=== PATIENT | male | born 1950 | race Caucasian/White ===

== ENCOUNTER 2017-03-01 13:48 | Inpatient (IN) | payer OTHER ==
--- NOTE | ~2017-03-01 | CR63 ---
[facility] A Service of [facility] & [facility] RADIOLOGY TEXT RESULTS PATIENT: ELIANA MCGOWAN LOCATION: [facility] 319- : 48 UNIT #: [id number] AGE: [address]: Eliseo Tirado MD SEX: M ORDER DR: [id number] [facility] [address]. [place], [place] [address] [id number] I MR#: [id number] Acc #: [id number] NAME: ELIANA MCGOWAN. : 1950 SEX: M STUDY DATE/TIME: 03/06/2017 9:00 UNIT: [address] ROOM: [facility] STUDY DESCRIPTION: CR Chest 2 View Attending Physician: Eliseo Tirado M.D. Ordering Physician: Seth Hernandez M.D. Primary Care Physician: Elizabeth Brito M.D. MEDICAL IMAGING REPORT This report is preliminary unless electronic signature is present EXAM PA and lateral chest in 4 views 03/06/2017 COMPARISON STUDIES 03/02/2017 HISTORY Chest pain for 2 days with shortness of air. FINDINGS There is improved lung aeration since the prior study with decreased vascular congestion and resolved right mid to upper lung apparent infiltrate. There is no pneumothorax. There is mild cardiomegaly but no acute abnormality is seen. Dictated by... Saeid Quintero M.D. THIS IS AN ELECTRONICALLY VERIFIED REPORT Saeid Quintero M.D. at 03/08/2017 10:31 AM LINO/kathryn TD: 03/06/2017 14:55 JOB #: [id number] MEDICAL IMAGING REPORT Page 1 of 1 COPY
--- NOTE | ~2017-03-01 | CT71 ---
[facility] A Service of [facility] & [facility] RADIOLOGY TEXT RESULTS PATIENT: ELIANA MCGOWAN LOCATION: [facility] 319- : 48 UNIT #: [id number] AGE: [address]: Eliseo Tirado MD SEX: M ORDER DR: [id number] [facility] [address]. [place], [place] [address] [id number] I MR#: [id number] Acc #: [id number] NAME: ELIANA MCGOWAN. : 1950 SEX: M STUDY DATE/TIME: 03/01/2017 16:25 UNIT: [address] ROOM: [facility] STUDY DESCRIPTION: CT Head Wo Contrast Attending Physician: Eliseo Tirado M.D. Ordering Physician: Mark Torres D.O. Primary Care Physician: Elizabeth Brito M.D. MEDICAL IMAGING REPORT This report is preliminary unless electronic signature is present EXAM CT brain without contrast HISTORY Posterior headache for 3 weeks. No injury. FINDINGS This CT exam was performed with one or more of the following radiation dose reduction techniques: Automatic exposure control, adjustment of mA and/or kV according to patient size, and iterative reconstruction. CT brain without contrast demonstrates no intracranial hemorrhage, mass or edema. No midline shift or ventricular dilatation or extraaxial fluid collection. 1 cm retention cyst in the lateral right maxillary sinus. Mild mucosal thickening in the inferior maxillary sinuses. IMPRESSION 1. Negative head CT. 2. Mild paranasal sinus mucosal thickening. Dictated by... Vu Post M.D. THIS IS AN ELECTRONICALLY VERIFIED REPORT Vu Post M.D. at 03/02/2017 1:59 PM DFL/rashawn TD: 03/01/2017 21:54 JOB #: [id number] MEDICAL IMAGING REPORT Page 1 of 1 COPY
--- NOTE | ~2017-03-01 | PFT ---
[id number] [facility] [address] [facility]. [place], [place] [address] [id number] I MR#: [id number] NAME: ELIANA MCGOWAN ROOM: 319 SEX: M STUDY DATE/TIME: 03/08/2017 : 1950 AGE: 66 STUDY DESCRIPTION: Attending Physician: Eliseo Tirado M.D. Primary Care Physician: Elizabeth Brito M.D. PULMONARY DIAGNOSTIC REPORT EXAM Pulmonary function test. FINDINGS Spirometry is suggestive of a severe restrictive defect. FVC is 1.95 liters, 42% of predicted. Flow volume loop is consistent with a restrictive defect. Please note that restriction cannot be confirmed by spirometry alone and suggests full PFTs if clinically indicated. Dictated by... Phani Navarro/rosa TD: 03/08/2017 09:20 JOB #: [id number] CC: Eliseo Tirado M.D. PULMONARY DIAGNOSTIC REPORT Page 1 of 1
--- NOTE | ~2017-03-01 | CT57 ---
[facility] A Service of [facility] & [facility] RADIOLOGY TEXT RESULTS PATIENT: ELIANA MCGOWAN LOCATION: [facility] 319- : 48 UNIT #: [id number] AGE: [address]: Eliseo Tirado MD SEX: M ORDER DR: [id number] [facility] [address]. [place], [place] [address] [id number] I MR#: [id number] Acc #: [id number] NAME: ELIANA MCGOWAN. : 1950 SEX: M STUDY DATE/TIME: 03/03/2017 1106 [facility]: [facility] STUDY DESCRIPTION: CT Chest Wo Cont Attending Physician: Eliseo Tirado M.D. Ordering Physician: Eliseo Tirado M.D. Primary Care Physician: Elizabeth Brito M.D. MEDICAL IMAGING REPORT This report is preliminary unless electronic signature is present EXAM CT chest without contrast 03/03/2017 1106 hours CLINICAL HISTORY 66-year-old man with shortness of air for 4-5 weeks, possible pneumonia. COMPARISON Chest x-rays 03/02/2017 TECHNIQUE Helical noncontrasted images were obtained from the thoracic inlet through the adrenal glands. Sagittal and coronal reconstructions were performed. Total exam DLP 887 mGy-cm. This CT exam was performed with one or more of the following radiation dose reduction techniques: automatic exposure control, adjustment of mA and/or kV according to patient size, and iterative reconstruction. FINDINGS Images through the thoracic inlet demonstrate no thyroid lesion or supraclavicular adenopathy. Images through the chest demonstrate tiny superior mediastinal, middle mediastinal and hilar nodes consistent with reactive nodes. There is no pathologic adenopathy. The aorta, cardiac chambers and pericardium are normal. There are diffuse coronary calcifications. There is no pericardial fluid. There are small dependent pleural effusions bilaterally. The lung window images demonstrate patchy airspace density in the right upper lobe, right middle lobe and right lower lobe with air bronchograms present. These findings correspond to the abnormal area seen on prior chest x-rays and most likely represent a diffuse right lung pneumonia. There is some linear scar in the left midlung left lung base but no STS. [facility] A Service of [facility] & [facility] & [facility] RADIOLOGY TEXT RESULTS PATIENT: ELIANA MCGOWAN LOCATION: A 319-01 : 48 UNIT #: [id number] AGE: [address]: Eliseo Tirado MD SEX: M ORDER DR: evidence of pneumonia on the left. There is some atelectasis at the right posterior lung base abutting the pleural effusion. There are a few tiny nodular density seen laterally at the right lung base which I would favor represent small airspace densities rather than true nodules. IMPRESSION 1. There is diffuse airspace density in the right upper lung, right middle lobe and right lower lobe with air bronchograms corresponding to the density seen on recent chest films most likely representing pneumonia. 2. There is linear scarring or atelectasis at the left base. There is no evidence of left-sided pneumonia or edema. 3. There are very small dependent pleural effusions with mild right basilar atelectasis abutting the effusion. Dictated by... Molly Orellana M.D. THIS IS AN ELECTRONICALLY VERIFIED REPORT Molly Orellana M.D. at 03/03/2017 5:18 PM Rich TD: 03/03/2017 15:20 JOB #: [id number] MEDICAL IMAGING REPORT Page 1 of 1 COPY
--- NOTE | ~2017-03-01 | A ---
[facility] Nutrition Therapy DATE: 03/03/17 Patient: ELIANA MCGOWAN Physician: ELBA Address: [address] Room/Bed: [address] [place] [address], Zip: [place] [address] Admit Date: 03/01/17 Date of : 48 Height: 5 11 Weight: 365 166 NUTRITIONAL ASSESSMENT: REASON: CONSULT RE: DECREASED APPETITE, DIABETIC, ALSO HIGH BMI DOCUMENTATION PT IS 66 Y.O. MALE ADMITTED FOR PNEUMONIA PMH: CASEY, DM, HTN, CHF Anthropometrics: 5'11", WT: 320# (145 KG), BMI: 44.6 -WEIGHTS HAVE RANGED 320-265# SINCE ADMIT Labs: GLU: 365, BUN: 52, CREAT: 1.9, ALB: 3.3, NA+:133, A1c: 8.2, GFR: 35.4 Meds: NOVOLOG, MIRALAX, LIPITOR, FUROSEMIDE, SYNTHROID I/O & Bowel function: 1430/1605 EDEMA: BLE TRACE EDEMA Skin Integrity: BLACKENED NAILS; CALLOUS BOTH FEET Assessment: CHART REVIEWED AND EVENTS NOTED. PT SEEN FOR DECREASED APPETITE. PT SITTING ON EDGE OF BED EATING LUNCH AT TIME OF VISIT. PT REPORTS DECREASED PO INTAKE 2' DECREASED APPETITE PAST COUPLE OF DAYS 2' CURRENT DX. PT REPORTS GOOD PO INTAKE AND APPETITE PRIOR TO A FEW DAYS BEFORE. PT AND REPORT CONSUMING A LOT OF FAST FOOD PAST FEW YEARS 2' FAMILY EMOTIONAL ISSUES. RD PROVIDED WRITTEN AND VERBAL CC DIET EDUCATION. PT REPORTS DRINKING REGULAR AND DIET SODAS DAILY. RD ENCOURAGED WATER INTAKE, PT AGREED. PT AND REPORTED NO DIET QUESTIONS AT THIS TIME. RD TO REMAIN AVAILABLE. Dx: IMPAIRED GLYCEMIC CONTROL R/T PMH AEB ELEVATED BLOOD SUGARS, A1c OF 8.2. Intervention: 1. CC DIET 2. RD CONSULT 3. DIET EDUCATION Monitoring, Evaluation and Goals: 1. ORAL INTAKE; CONSUME >50% OF MEALS 2. WEIGHTS; PROMOTE GRADUAL WEIGHT LOSS TOWARDS HEALTH BMI 3. LABS; WNL MONITOR: -PO INTAKE/APPETITE -WEIGHTS -EDUCATION NEEDS [facility] Nutrition Therapy DATE: 03/03/17 Patient: ELIANA MCGOWAN Physician: ELBA Address: [address] Room/Bed: [address] [place] [address], Zip: [place] [id number] Admit Date: 03/01/17 Date of : 48 Height: 5 11 Weight: 365 166 Recommendations: 1. ENCOURAGE COMPLIANCE OF CURRENT DIET ORDER ABOVE -ADD HH TO CURRENT DIET ORDER TO PROMOTE GRADUAL WEIGHT LOSS TOWARDS HEALTHY BMI RD WILL F/U PER PROTOCOL PT IS MILDLY COMPROMISED Respectfully, MICHAELA CANTRELL MS, RD, LD Food and Nutritional Services [facility] cc: client file
--- NOTE | ~2017-03-01 | CR63 ---
[facility] A Service of [facility] & [facility] RADIOLOGY TEXT RESULTS PATIENT: ELIANA MCGOWAN LOCATION: [facility] 319- : 48 UNIT #: [id number] AGE: [address]: Eliseo Tirado MD SEX: M ORDER DR: [id number] [facility] [address] [facility]. [place], [place] [address] [id number] I MR#: [id number] Acc #: [id number] NAME: ELIANA MCGOWAN. : 1950 SEX: M STUDY DATE/TIME: 03/02/2017 12:02 UNIT: [address] ROOM: [facility] STUDY DESCRIPTION: CR Chest 2 View Attending Physician: Eliseo Tirado M.D. Ordering Physician: Eliseo Tirado M.D. Primary Care Physician: Elizabeth Brito M.D. MEDICAL IMAGING REPORT This report is preliminary unless electronic signature is present EXAM Chest PA and lateral in 3 views, 03/02/2017 COMPARISON 03/01/2017 CLINICAL HISTORY History of congestive heart failure for 1 day. FINDINGS Low lung volumes and moderate cardiomegaly redemonstrated along with mild vascular congestion with right mid lung infiltrate and probable small bilateral pleural effusions. Dictated by... Saeid Quintero M.D. THIS IS AN ELECTRONICALLY VERIFIED REPORT Saeid Quintero M.D. at 03/08/2017 10:36 AM LINO/debbie TD: 03/02/2017 15:27 JOB #: [id number] MEDICAL IMAGING REPORT Page 1 of 1 COPY
--- NOTE | ~2017-03-01 | CR72 ---
[facility] A Service of [facility] RADIOLOGY TEXT RESULTS PATIENT: ELIANA MCGOWAN LOCATION: [facility] 319-01 : 48 UNIT #: [id number] AGE: [address]: Eliseo Tirado MD SEX: M ORDER DR: [id number] [facility] [address] [facility]. [place], [place] [address] [id number] MR#: [id number] Acc #: [id number] NAME: ELIANA MCGOWAN. : 1950 SEX: M STUDY DATE/TIME: 03/01/2017 14:45 UNIT: [place]IM[place] ROOM: STUDY DESCRIPTION: CR Chest Single View Portable Attending Physician: Mark Torres D.O. Ordering Physician: Mark Torres D.O. Primary Care Physician: Elizabeth Brito M.D. MEDICAL IMAGING REPORT This report is preliminary unless electronic signature is present EXAM Portable chest. HISTORY Shortness of air for 2 days, coughing up blood, fever. COMPARISON 04/04/2007 FINDINGS A portable view of the chest is obtained. The heart size is normal. The left lung appears clear. There is some faint patchy infiltrate suggested in the right mid lung. There is a cervical plate present. IMPRESSION Faint patchy density suggested in the right mid lung on this portable chest x-ray, suggesting pneumonia. Clinical correlation and follow-up recommended. Dictated by... Marco Ashton M.D. THIS IS AN ELECTRONICALLY VERIFIED REPORT Marco Ashton M.D. at 03/02/2017 11:43 AM TELMA/tonya TD: 03/01/2017 19:39 JOB #: [id number] MEDICAL IMAGING REPORT [facility] A Service [facility] RADIOLOGY TEXT RESULTS PATIENT: ELIANA MCGOWAN LOCATION: [facility] 319-01 : 48 UNIT #: [id number] AGE: [address]: Eliseo Tirado MD SEX: M ORDER DR: Page 1 of 1 COPY
--- NOTE | ~2017-03-01 | DS ---
Unit #: [id number] #: [id number] Patient: ELIANA MCGOWAN [id number] [address] [place], [place] [address] [id number] I MR#: [id number] NAME: ELIANA MCGOWAN. ROOM: 319 Age: 66 Sex: M Admission Date: 03/01/2017 : 1950 Discharge Date: 03/06/2017 Attending Physician: Eliseo Tirado M.D. Primary Care Physician: Elizabeth Brito M.D. DISCHARGE SUMMARY DISCHARGE DIAGNOSES 1. Community-acquired pneumonia. 2. Cor pulmonale. Echocardiogram revealing RVSP of 47. 3. Chronic kidney disease. 4. Hypertension. 5. Diabetes, improved with diabetic diet in the hospital. 6. Wheezing consider airways disease improved with brief steroids and inhalers. 7. Obstructive sleep apnea on CPAP, not evaluated in the sleep lab for many years. 8. Hypothyroidism. DISCHARGE MEDICATIONS ProAir 2 puffs q.i.d. p.r.n., Symbicort 160 two puffs b.i.d. Xanax 0.25 daily p.r.n., I have suggested to avoid if possible. Norvasc 10 mg a day, Lopressor 50 mg b.i.d., Lasix 80 mg a day, losartan/hydrochlorothiazide 1 daily, Zocor 40 mg at bedtime, hydralazine 100 mg b.i.d. Humulin N 43 units in the morning, 27 units at bedtime, he takes regular insulin 15 units in the morning before breakfast, 16 units before supper, he adjust that based on his sliding scale. Multivitamin daily, aspirin 81 mg daily, Lortab 7.5/325 one tab daily as needed, Flexeril 10 mg t.i.d. p.r.n., Synthroid 50 mcg daily, Ceftin 500 mg b.i.d. for 3 days, Zithromax 500 mg a day for [address] Brito in 1 to 2 weeks for diabetes and hypertension and Dr. Bagley in 2 to 3 weeks for chronic kidney disease. 2. Dr. Tirado's nurse practitioner in 2 weeks, arrange PFTs and retitration of CPAP. 3. Dr. Tirado in the office 6 to 8 weeks or after CPAP retitration. DIET Diabetic diet. Please note, he has been counseled by the dietitian here. ACTIVITY No specific restrictions, room air saturations 98%. DESCRIPTION OF HOSPITALIZATION Please see chart for details. He was admitted to the emergency room with shortness of breath. He had hypoxemia with saturations at 91% on room air. He had a chest x-ray that showed some nodular pulmonary infiltrates treated for pneumonia. He also had significant volume overload with swelling and underwent diuresis. Dr. White/Yudi saw the patient in Unit #: [id number] #: [id number] Patient: ELIANA MCGOWAN consultation and his kidney function thankfully remained remarkably stable throughout his hospitalization even with diuresis. His discharge creatinine was 1.5. In regard to his pulmonary status, he improved with diuresis. He did develop some wheezing and he got 2 doses of steroids. He did have hyperglycemia which was anticipated and was treated with sliding scale insulin. After the effect of the steroids wore off, his blood sugars were actually a little lower than they were usually at home and that was attributed to a better diabetic diet here. He has been educated and state that he has "learned my lesson." In evaluation of his shortness of breath, he had bedside spirometry which revealed a restrictive defect with an FVC of 1.95 L 42% of predicted. Echocardiogram revealed normal LV function. He had an RVSP of 47 and unremarkable valves. He had a CT scan, which revealed pulmonary infiltrates consistent with pneumonia. Of note, chest x-ray on the day of discharge, revealed basically clearance of those infiltrates. Cultures were negative. On the day of discharge, he was doing well. He was asking for discharge. He was changed over to oral antibiotics and will be discharged as above with followup as above. Given his pulmonary hypertension, weight gain, etc, he should undergo repeat CPAP titration in the sleep lab. Given his wheezing and restrictive spirometry, we will check full PFTs in the office in approximately 4 to 5 weeks after he recovers from his pneumonia. For now, we will continue Symbicort and ProAir, but possibly deescalate those inhalers as an outpatient. Dictated by... Eliseo Tirado M.D. RUPERT/renuka TD: 03/08/2017 00:15 JOB #: [id number] DISCHARGE SUMMARY Page 1 of 1 X Eliseo Tirado MD DISCHARGE SUMMARY
--- NOTE | ~2017-03-01 | US77 ---
[facility] A Service of [facility] & [facility] RADIOLOGY TEXT RESULTS PATIENT: ELIANA MCGOWAN LOCATION: [facility] 319- : 48 UNIT #: [id number] AGE: [address]: Eliseo Tirado MD SEX: M ORDER DR: [id number] [facility] [address] [facility]. [place], [place] [address] [id number] I MR#: [id number] Acc #: [id number] NAME: ELIANA MCGOWAN : 1950 SEX: M STUDY DATE/TIME: 03/02/2017 15:49 UNIT: [address] ROOM: [facility] STUDY DESCRIPTION: US Kidney Bilateral Complete Attending Physician: Eliseo Tirado M.D. Ordering Physician: Manish Enriquez Jr., M.D. Primary Care Physician: Elizabeth Brito M.D. MEDICAL IMAGING REPORT This report is preliminary unless electronic signature is present EXAM Bilateral renal ultrasound HISTORY Stage 3 chronic kidney disease. Elevated creatinine. FINDINGS Ultrasound examination of both kidneys demonstrates a 2.2 cm simple cyst in the mid right kidney and a 5.5 cm simple cyst in the upper pole left kidney. Mild generalized bilateral renal cortical thinning. No solid renal mass. No focal renal atrophy. No perinephric fluid collection. No hydronephrosis. Survey of the urinary bladder is unremarkable. Right kidney measures 13.9 cm in length and the left kidney measures 14.4 cm in length. IMPRESSION 1. No hydronephrosis. 2. Incidental simple cyst in each kidney. 3. Mild generalized bilateral renal cortical thinning. Dictated by... Vu Post M.D. THIS IS AN ELECTRONICALLY VERIFIED REPORT Vu Post M.D. at 03/03/2017 11:19 PM Apollo TD: 03/02/2017 18:49 JOB #: [id number] MEDICAL IMAGING REPORT Page 1 of 1 COPY
--- NOTE | ~2017-03-01 | EKG ---
PATIENT: ELIANA MCGOWAN UNIT #: [id number] Ventricular Rate: 62 BPM Atrial Rate: 62 BPM P-R Interval: 230 ms QRS Duration: 96 ms Q-T Interval: 448 ms QTC Calculation(Bezet): 454 ms P Verona: -21 degrees Calculated R Verona: 3 degrees Calculated T Verona: 57 degrees Diagnosis Line: Sinus rhythm with 1st degree A-V block Diagnosis Line: Otherwise normal ECG Diagnosis Line: No previous ECGs available Diagnosis Line: Confirmed by ANGELIQUE NICE MD ([id number]) on Diagnosis Line: 03/03/2017 7:56:11 AM INTERPRETING MD: ARLET LIZARRAGA
--- NOTE | ~2017-03-01 | HP ---
Unit #: [id number] #: [id number] Patient: ELIANA TREVINO [id number] [address] [place], [place] [address] [id number] I MR#: [id number] NAME: ELIANA TREVINO. ROOM: 40254 Age: 66 Sex: M Admission Date: 03/01/2017 : 1950 Attending Physician: Eliseo Tirado M.D. Primary Care Physician: Elizabeth Brito M.D. HISTORY AND PHYSICAL CHIEF COMPLAINT Shortness of breath. HISTORY OF PRESENT ILLNESS Mr. Trevino is a 66-year-old gentleman who has sleep apnea but has not previously followed up in our office, diabetes, and hypertension, who presents with a three to four week history of increasing dyspnea. He got very weak and more short of breath and had more swelling and presented to the emergency room. He has some cough with mild sputum production, but he thinks it is from his sinuses. He also had mucus with blood streaks in it, but again, he thinks it is "from my sinuses." He has occasional wheeze usually with exertion. He denies chest pain or documented fever. In the emergency room, he had a chest x-ray that the radiologist read as possible pneumonia, and he is being admitted to the hospital. PAST MEDICAL HISTORY 1. Diabetes. 2. Hypertension. 3. Obstructive sleep apnea. 4. Diastolic heart failure. 5. Anxiety. HOME MEDICATIONS 1. NovoLog. 2. Norvasc. 3. Multivitamin. 4. Aspirin. 5. Lopressor. 6. Lasix. 7. Alprazolam. 8. Losartan. 9. Zocor. 10. Novolin insulin. 11. Novolin R insulin. 12. Acidophilus. 13. Synthroid. 14. [place]. 15. Flexeril. ALLERGIES Morphine. SOCIAL HISTORY Never smoker, never drinker. Unit #: [id number] #: [id number] Patient: ELIANA TREVINO FAMILY HISTORY Heart disease. REVIEW OF SYSTEMS He has gained significant weight since his sleep study and feels he needs to be evaluated. No documented fever, although he had a mild chilling sensation at home. He had some mild nausea. No emesis, no melena, hematochezia, hematuria, dysuria, focal weakness, or paresthesias. Generalized weakness only. He had significant swelling in his belly and legs. Further review of systems is negative. PHYSICAL EXAMINATION GENERAL: Patient is in no acute distress, watching TV. VITAL SIGNS: He is afebrile, pulse 68, respiratory rate 16, and blood pressure is 142/50. He is 5 feet 11 and 320 pounds. BMI is 44. HEENT: Pupils are equal, round, and reactive to light. Sclerae are anicteric. Head atraumatic. Mucous membranes are moist. Mallampati Class IV oropharynx. NECK: Supple. No supraclavicular or cervical adenopathy appreciated. Very large neck. Difficult to evaluate adenopathy. Difficult to evaluate jugular venous pressures. CHEST: Equal breath sounds and generalized decreased breath sounds. I do not appreciate a definite wheeze, stridor, or consolidation. CARDIAC: Regular rate and rhythm. There is a systolic murmur. ABDOMEN: Soft and nontender. No hepatomegaly or rebound. EXTREMITIES: Some sacral edema and 1 to 2+ bilateral pitting edema. No calf tenderness. SKIN: He has some bruising on his toes. He does have neuropathy. He states he cannot feel his toes very well. NEUROLOGICALLY: Grossly intact. No focal muscle or sensory deficits. DIAGNOSTIC STUDIES LABORATORY: BUN is 39 and creatinine is 1.7. BNP 519. Lactic acid normal. Glucose was 54. INR 1. Cardiac enzymes negative. White blood cell count 11.7, hemoglobin 12.5, and platelet count 206,000. Blood cultures performed and are pending. IMAGING: Chest x-ray limited by his body habitus. He has some patchy alveolar infiltrates on the right side and possibly on the left side. CARDIOLOGY: EKG sinus rhythm. No acute ischemic changes. IMPRESSION 1. Shortness of breath. I feel this is most likely with congestive heart failure. 2. Abnormal chest x-ray, possible pneumonia. 3. Obesity. 4. Obstructive sleep apnea, suspect undertreated. 5. Chronic kidney disease. 6. Systolic murmur. 7. Diabetes. 8. Hypertension. 9. Hypothyroidism. PLAN Admission to the hospital. Diuresis. Check echocardiogram. Antibiotics for now. Procalcitonin level will be checked. If he does not respond as Unit #: [id number] #: [id number] Patient: ELIANA TREVINO expected, consider noncontrast CT scan of the chest. I will ask Cardiology and Renal to see. Dictated by Phani Navarro/concepción TD: 03/01/2017 20:42 JOB #: [id number] CC: Phani Carmona M.D. HISTORY AND PHYSICAL Page 1 of 1 X Eliseo Tirado MD X HISTORY AND PHYSICAL
--- NOTE | ~2017-03-01 | EKG ---
PATIENT: ELIANA MCGOWAN UNIT #: [id number] Ventricular Rate: 101 BPM Atrial Rate: 101 BPM P-R Interval: 194 ms QRS Duration: 96 ms Q-T Interval: 392 ms QTC Calculation(Bezet): 508 ms P [place]: 25 degrees Calculated R [place]: 2 degrees Calculated T [place]: 99 degrees Diagnosis Line: Sinus tachycardia with Premature atrial complexes Diagnosis Line: ST and T wave abnormality, consider lateral ischemia Diagnosis Line: Abnormal ECG Diagnosis Line: When compared with ECG of 01-MAR-2017 14:17, Diagnosis Line: Premature atrial complexes are now Present Diagnosis Line: [place] interval has decreased Diagnosis Line: Vent. rate has increased BY 39 BPM Diagnosis Line: ST now depressed in Lateral leads Diagnosis Line: T wave inversion now evident in Lateral leads Diagnosis Line: QT has lengthened Diagnosis Line: Confirmed by VÍCTOR SMITH MD ([id number]) on Diagnosis Line: 03/05/2017 9:57:14 AM INTERPRETING : [facility]
[2017-03-01 14:56] LABS: BASOPHIL# 0.1 X10e3 (0-0.3); BASOPHIL% 0.7 % (0-2.5); EOSINOPHIL% 0.4 % (0.0-7.0); HEMATOCRIT 37.3 % (38.0-50.0); HEMOGLOBIN 12.5 gm/dL (13.0-16.0); LYMPHOCYTE# 1.4 X10e3 (1.0-3.5); MEAN CELL VOLUME 87.8 FL (83-96); MEAN CORPUSCULAR HEMOGLOBIN 29.5 PG (28-34); MEAN CORPUSCULAR HGB CONC 33.6 g/dL (30-36); MEAN PLATELET VOLUME 8.6 FL (6.5-11.5); MONOCYTE# 1.3 X10e3 (0-1.0); NEUTROPHIL# 8.9 X10e3 (1.5-7.1); NEUTROPHIL% 75.9 % (40-75); PLATELET COUNT 206 X10e3 (140-420); RED BLOOD COUNT 4.25 X10e (3.90-5.60); RED CELL DISTRIBUTION WIDTH 14.4 % (11.0-15.5); WHITE BLOOD COUNT 11.7 X10e3 (4.0-10.5)
[2017-03-01 14:57] LABS: DIFF IND NO
[2017-03-01 15:01] LABS: POC - CKMB 1.7 ng/mL (0.0-7.9); POC - TROPONIN <0.05 ng/mL (<=0.05)
[2017-03-01 15:17] LABS: PARTIAL THROMBOPLASTIN TIME 28.2 SECONDS (23.5-31.3); PROTHROMBIN TIME (PATIENT) 11.1 SECONDS (10.0-11.7)
[2017-03-01 15:22] LABS: ALBUMIN SERUM 3.8 g/dL (3.5-5.0); BILIRUBIN, DIRECT 0.2 mg/dL (0.0-0.2); BILIRUBIN,INDIRECT 0.8 mg/dL (0.0-0.9); BUN/CREATININE RATIO 22.94; CALCIUM SERUM 8.8 mg/dL (8.4-10.2); CREATININE SERUM 1.7 mg/dL (0.6-1.4); GLOM FILT RATE Estimated 40.6 mL/min (>60); POTASSIUM 3.8 mmol/L (3.5-5.1); PROTEIN TOTAL SERUM 7.4 g/dL (6.0-8.3)
[2017-03-01] MEDS ORDERED: NOVOLOG100 UNITS/ (17:16)
[2017-03-01] MEDS ORDERED: NORVASC10 MG PO (17:16)
[2017-03-01] MEDS ORDERED: FUROSEMIDE40 MG PO (17:17)
[2017-03-01] MEDS ORDERED: MULTIVITAMINS1 EAC3 PO (17:17)
[2017-03-01] MEDS ORDERED: ALPRAZOLAM0.5 MG PO (17:17)
[2017-03-01] MEDS ORDERED: ASPIRIN81 M2 PO (17:17)
[2017-03-01] MEDS ORDERED: LOPRESSOR PO (17:17)
[2017-03-01] MEDS ORDERED: ZOCOR PO (17:18)
[2017-03-01] MEDS ORDERED: LOSARTAN-HCTZ1 EAC2 PO (17:18)
[2017-03-01] MEDS ORDERED: NOVOLIN N100 UNIT/1 SUBQ (17:20)
[2017-03-01] MEDS ORDERED: ACIDOPHILUS1 EAC3 PO (17:20)
[2017-03-01] MEDS ORDERED: TIROSINT50 MCG PO (17:20)
[2017-03-01] MEDS ORDERED: NOVOLIN R100 UNITS/ SUBQ (17:20)
[2017-03-01] MEDS ORDERED: FLEXERIL10 MG PO (17:21)
[2017-03-01] MEDS ORDERED: HYDROCODON-ACE1 EAC9 PO (17:21)
[2017-03-01 19:38] LABS: MAGNESIUM 2.4 mg/dL (1.6-3.0)
[2017-03-01 19:45] LABS: POC - CKMB 1.1 ng/mL (0.0-7.9); POC - TROPONIN <0.05 ng/mL (<=0.05)
[2017-03-01 21:07] LABS: FOLATE (FOLIC ACID) >23.3 ng/mL (>5.8)
[2017-03-01 23:34] LABS: CK TOTAL 54 IU/L (36-174)
[2017-03-02 03:37] LABS: BASOPHIL# 0.1 X10e3 (0-0.3); BASOPHIL% 0.6 % (0-2.5); EOSINOPHIL% 0.3 % (0.0-7.0); HEMATOCRIT 36.6 % (38.0-50.0); HEMOGLOBIN 11.9 gm/dL (13.0-16.0); LYMPHOCYTE# 1.6 X10e3 (1.0-3.5); MEAN CELL VOLUME 88.9 FL (83-96); MEAN CORPUSCULAR HEMOGLOBIN 28.9 PG (28-34); MEAN CORPUSCULAR HGB CONC 32.5 g/dL (30-36); MEAN PLATELET VOLUME 8.5 FL (6.5-11.5); MONOCYTE# 1.5 X10e3 (0-1.0); MONOCYTE% 12.2 % (3.0-12.0); NEUTROPHIL# 9.2 X10e3 (1.5-7.1); NEUTROPHIL% 73.9 % (40-75); PLATELET COUNT 205 X10e3 (140-420); RED BLOOD COUNT 4.12 X10e (3.90-5.60); RED CELL DISTRIBUTION WIDTH 14.4 % (11.0-15.5); WHITE BLOOD COUNT 12.4 X10e3 (4.0-10.5)
[2017-03-02 03:39] LABS: DIFF IND NO
[2017-03-02 04:07] LABS: CK TOTAL 49 IU/L (36-174)
[2017-03-02 04:11] LABS: ALBUMIN SERUM 3.3 g/dL (3.5-5.0); BILIRUBIN,TOTAL 0.8 mg/dL (0.2-2.0); BUN/CREATININE RATIO 22.35; CALCIUM SERUM 8.4 mg/dL (8.4-10.2); CREATININE SERUM 1.7 mg/dL (0.6-1.4); GLOM FILT RATE Estimated 40.6 mL/min (>60); MAGNESIUM 2.1 mg/dL (1.6-3.0); POTASSIUM 3.9 mmol/L (3.5-5.1); PROTEIN TOTAL SERUM 6.8 g/dL (6.0-8.3)
[2017-03-02 06:30] LABS: URINE SOURCE CLEAN CATCH
[2017-03-02 06:36] LABS: URINE APPEARANCE CLEAR; URINE BILIRUBIN NEG (NEG); URINE BLOOD NEG (NEG); URINE COLOR YELLOW; URINE GLUCOSE NEG (NEG); URINE KETONE NEG (NEG); URINE LEUKOCYTE ESTERASE 1+ (NEG); URINE NITRATE NEG (NEG); URINE PH 5.5 (5-8); URINE PROTEIN NEG (NEG); URINE SPECIFIC GRAVITY 1.012 (1.003-1.035); URINE UROBILINOGEN 0.2 MG/DL (NEG)
[2017-03-02 06:38] LABS: URBCS1 AUWI 0-2 /[HPF] (0-2); URINE BACTERIA AUWI NEG (NEGATIVE); URINE SQUAMOUS EPITHELIAL CELL NONE SEEN /[HPF]
[2017-03-03 05:57] LABS: BUN/CREATININE RATIO 27.36; CALCIUM SERUM 8.5 mg/dL (8.4-10.2); CREATININE SERUM 1.9 mg/dL (0.6-1.4); GLOM FILT RATE Estimated 35.4 mL/min (>60); POTASSIUM 4.4 mmol/L (3.5-5.1)
[2017-03-03 19:32] LABS: ARTERIAL BLD GAS O2 SATURATION 96.2 % (90.0-100.0); ARTERIAL BLOOD GAS HCO3 23.5 mmol/L; ARTERIAL BLOOD GAS MET HB 0.7 %sat (0.0-2.0); ARTERIAL BLOOD GAS PCO2 24.4 mmHg (35.0-45.0); ARTERIAL BLOOD GAS PO2 84.5 mmHg (80.0-100); ARTERIAL BLOOD GAS pH 7.592 (7.350-7.450)
[2017-03-03 19:34] LABS: ARTERIAL BLOOD GAS ALLEN TEST NORMAL; ARTERIAL BLOOD GAS ART SITE RIGHT RADIAL; ARTERIAL BLOOD GAS DELIVERY CPAP 12 WITH O2 (3L); ARTERIAL DRAW? YES
[2017-03-04 06:40] LABS: BUN/CREATININE RATIO 34.7; CREATININE SERUM 1.7 mg/dL (0.6-1.4); GLOM FILT RATE Estimated 40.6 mL/min (>60); POTASSIUM 4.3 mmol/L (3.5-5.1)
[2017-03-05 05:15] LABS: HEMATOCRIT 38.3 % (38.0-50.0); HEMOGLOBIN 12.6 gm/dL (13.0-16.0); MEAN CELL VOLUME 88.1 FL (83-96); MEAN CORPUSCULAR HEMOGLOBIN 28.9 PG (28-34); MEAN CORPUSCULAR HGB CONC 32.8 g/dL (30-36); MEAN PLATELET VOLUME 8.4 FL (6.5-11.5); RED BLOOD COUNT 4.34 X10e (3.90-5.60); RED CELL DISTRIBUTION WIDTH 14.2 % (11.0-15.5); WHITE BLOOD COUNT 9.7 X10e3 (4.0-10.5)
[2017-03-05 05:47] LABS: BUN/CREATININE RATIO 28.82; CREATININE SERUM 1.7 mg/dL (0.6-1.4); GLOM FILT RATE Estimated 40.6 mL/min (>60); POTASSIUM 4.1 mmol/L (3.5-5.1)
[2017-03-06 05:28] LABS: HEMATOCRIT 40.5 % (38.0-50.0); HEMOGLOBIN 13.1 gm/dL (13.0-16.0); MEAN CELL VOLUME 89.4 FL (83-96); MEAN CORPUSCULAR HEMOGLOBIN 28.8 PG (28-34); MEAN CORPUSCULAR HGB CONC 32.3 g/dL (30-36); MEAN PLATELET VOLUME 8.3 FL (6.5-11.5); RED BLOOD COUNT 4.53 X10e (3.90-5.60); RED CELL DISTRIBUTION WIDTH 14.3 % (11.0-15.5); WHITE BLOOD COUNT 8.8 X10e3 (4.0-10.5)
[2017-03-06 06:24] LABS: BUN/CREATININE RATIO 27.33; CALCIUM SERUM 8.6 mg/dL (8.4-10.2); CREATININE SERUM 1.5 mg/dL (0.6-1.4); GLOM FILT RATE Estimated 47.2 mL/min (>60); POTASSIUM 4.4 mmol/L (3.5-5.1)
[2017-03-06] MEDS ORDERED: CEFTIN PO (10:37)
[2017-03-06] MEDS ORDERED: ZITHROMAX500 MG PO (10:37)
[2017-03-06] MEDS ORDERED: HYDRALAZINE HC100 MG PO (10:39)
[2017-03-06] MEDS ORDERED: SYMBICORT INH (10:40)
[2017-03-06] MEDS ORDERED: PROAIR HFA8.5 GM INH (10:42)
[2017-03-06] MEDS ORDERED: NOVOLIN N100 UNIT/1 SUBQ (10:45)
[2017-03-06] MEDS ORDERED: NOVOLIN R100 UNITS/ SUBQ (10:50)
== END 2017-03-06 12:27 | disposition home or self-care (01) | DRG 291 ==
LOC: CED 13:48 → CEDOF 17:30 → C3A PCU 17:30 → CEDOF 17:48 → CED 17:48 → CEDOF 21:11 → C3A PCU 21:11
PROVIDERS: Emergency Medicine; Family Medicine Sleep Medicine; Internal Medicine; Internal Medicine Nephrology
PROC: B246YZZ Ultrasonography of Right and Left Heart using Other Contrast (ICD-10-PCS; principal; 2017-03-02)
PROC: 05H333Z Insertion of Infusion Device into Right Innominate Vein, Percutaneous Approach (ICD-10-PCS; 2017-03-04)
PROC: B54MZZA Ultrasonography of Right Upper Extremity Veins, Guidance (ICD-10-PCS; 2017-03-04)
DX: I13.0 Hypertensive heart and chronic kidney disease with heart failure and stage 1 through stage 4 chronic kidney disease, or unspecified chronic kidney disease (principal); I50.31 Acute diastolic (congestive) heart failure; N17.9 Acute kidney failure, unspecified; J18.9 Pneumonia, unspecified organism; I27.81 Cor pulmonale (chronic); N18.3 Chronic kidney disease, stage 3 (moderate); E11.65 Type 2 diabetes mellitus with hyperglycemia; Z68.41 Body mass index [BMI] 40.0-44.9, adult; E87.1 Hypo-osmolality and hyponatremia; G47.33 Obstructive sleep apnea (adult) (pediatric); F41.9 Anxiety disorder, unspecified; Z79.4 Long term (current) use of insulin; Z88.5 Allergy status to narcotic agent; E66.9 Obesity, unspecified; E03.9 Hypothyroidism, unspecified
CPT/HCPCS: 36415; 36600; 70450; 71010; 71020; 71250; 76770; 80048; 80053; 80076; 81003; 82308; 82550; 82553; 82570; 82607; 82746; 82803; 82947; 83036; 83605; 83735; 83880; 84156; 84443; 84484; 85025; 85027; 85610; 85730; 87040; 87070; 87086; 87205; 89190; 93005; 93306; 94640; 94664; 94760; 99285; J0456; J0696; J1650; J1815; J1940; J2920